=== PATIENT | male | born 2000 | race African-American/Black ===

== ENCOUNTER 2022-12-16 16:59 | Emergency (ER) | payer OTHER ==
[~2022-12-16] VITALS: Ht 177.8 cm; Wt 68.0 kg
[2022-12-16 17:17] VITALS: BP 129/71
[2022-12-16] MEDS ORDERED: SENN-178 MT (17:26)
[2022-12-16] MEDS ORDERED: LACTULOSE 20G/30ML UDC PO ONE (17:30)
[2022-12-16] MEDS ORDERED: MINERAL OIL 30ML BOTTLE PO ONE (17:30)
[2022-12-16] MEDS ORDERED: MAGNESIUM HYDROXIDE 400MG/5ML 30ML UDC PO ONE (17:30)
== END 2022-12-17 07:39 | disposition home or self-care (01) ==
LOC: ER 16:59
DX: K59.00 Constipation, unspecified (principal)
CPT/HCPCS: 99283

== ENCOUNTER 2023-06-22 18:06 | Emergency (ER) | payer MEDICAID, OTHER ==
[~2023-06-22] VITALS: Ht 182.9 cm; Wt 90.0 kg
[~2023-06-22 18:06] MED LIST: SENN-371 MT
[2023-06-22 18:13] VITALS: BP 135/74; O2SAT 98
[2023-06-22] MEDS ORDERED: FLUC150T46 MT (20:07)
[2023-06-22] MEDS ORDERED: CLOT15CR27 TP (20:07)
[2023-06-22 20:43] VITALS: PULSE 68; RESP 16; TEMP 98.9
== END 2023-06-22 20:46 | disposition home or self-care (01) ==
LOC: ER 18:06
DX: B35.4 Tinea corporis (principal)
CPT/HCPCS: 99283

== ENCOUNTER 2024-12-18 09:46 | Emergency (ER) | payer MEDICARE, OTHER ==
[~2024-12-18] VITALS: Ht 180.3 cm; Wt 90.0 kg
[~2024-12-18 09:46] MED LIST changes: +CLOT15CR27 TP; +FLUC150T46 MT; +FLUO-413; +OLAN10TA72
[2024-12-18 09:47] VITALS: O2SAT 97
[2024-12-18] MEDS: LEVETIRACETAM 1000MG PREMIX 100 ML IV ONE (10:31)
[2024-12-18 10:32] LABS: BASOPHILS % 0.6 % (0.0-2.0); EOSINOPHILS % 5.8 % (0.0-5.0); HEMATOCRIT. 46.3 % (42.0-52.0); HEMOGLOBIN. 14.8 g/dL (14.0-18.0); LYMPHOCYTES % 44.7 % (20.0-50.0); MEAN CORPUSCULAR VOLUME 90.6 fL (80.0-94.0); MEAN PLATELET VOLUME 9.1 fl (7.4-10.4); MONOCYTES % 8.3 % (2.0-8.0); NEUTROPHILS % 40.6 % (40.0-76.0); PLATELET 215 x1000/uL (130-400); RED BLOOD CELL COUNT 5.11 mill/uL (4.7-6.1); RED CELL DISTRIBUTION WIDTH 14.1 % (11.6-14.6); WHITE BLOOD COUNT 5.5 x1000/uL (4.5-11.0)
[2024-12-18 10:39] LABS: CHLORIDE 107 mEq/L (98-107); POTASSIUM 3.7 mEq/L (3.5-5.1); SODIUM 141 mEq/L (136-145)
[2024-12-18 10:40] LABS: CALCIUM 9.5 mg/dL (8.7-10.4); CARBON DIOXIDE 17 mEq/L (21-32)
[2024-12-18 10:45] LABS: CREATININE 1.1 mg/dL (0.6-1.3); GLUCOSE 133 mg/dL (70-105); UREA NITROGEN BLOOD 9 mg/dL (9-23)
[2024-12-18 13:11] VITALS: BP 113/55; PULSE 76; RESP 16; TEMP 36.4; O2SAT 97
== END 2024-12-18 13:45 | disposition home or self-care (01) ==
LOC: ER 09:46
DX: R56.9 Unspecified convulsions (principal); F79 Unspecified intellectual disabilities; F84.0 Autistic disorder; Z79.899 Other long term (current) drug therapy
CPT/HCPCS: 80048; 80320; 85025; 36415; 71045; 93005; 96365; 99285; J1953; A4606; G0480